=== PATIENT | female | born 1955 | race African-American/Black ===

== ENCOUNTER → 2023-10-29 | Day surgery (SDC) | payer MEDICARE, MEDICAID ==
[~2023-10-29] VITALS: Ht 166.4 cm; Wt 74.8 kg
[~2023-10-29] MED LIST: BALANCED SALT IRRIG SOLN 15ML ONE; BALANCED SALT IRRIG SOLN COMB1 500ML OP NR; CYCLOPENTOLATE HCL 1% OPHTH DROPS 2ML RIGHTEYE ONE; FENTANYL CITRATE/PF 50MCG/ML 2ML VIAL ONE; HYALURONATE SODIUM 10 MG/ML 0.55ML SYRINGE IO ONE; MIDAZOLAM HCL 2 MG/2 ML VIAL ONE; MULT-1146 PO; OMEP20TA15 PO; PHENYLEPHRINE HCL 10% OPHTH DROPS 5ML RIGHTEYE ONE; RIVA10TA PO; TROPICAMIDE 1% OPHTH DROPS 15ML RIGHTEYE ONE
[2023-10-29] MEDS: SODIUM CHLORIDE 0.9% 1,000 ML IV SCH (10:39)
== END | disposition home or self-care (01) ==
LOC: OR 09:30
PROVIDERS: ATTEND Ophthalmology
DX: H25.011 Cortical age-related cataract, right eye (principal); J45.909 Unspecified asthma, uncomplicated; M51.26 Other intervertebral disc displacement, lumbar region; Z79.899 Other long term (current) drug therapy; Z98.890 Other specified postprocedural states; Z91.040 Latex allergy status; Z88.8 Allergy status to other drugs, medicaments and biological substances
CPT/HCPCS: 66984; 82962; J3010; J3490 ×2; J2250; V2632